=== PATIENT | male | born 1980 | race African-American/Black ===

== ENCOUNTER → 2017-03-11 | Outpatient (CLI) | payer MEDICARE ==
[~2017-03-11] MED LIST: IBUPROFEN PO; VOLTAREN75 MG PO
--- NOTE | ~2017-03-11 | MR113 ---
[facility] A Service of [facility] RADIOLOGY TEXT RESULTS PATIENT: LB STATON JR LOCATION: [facility] : 82 UNIT #: [id number] AGE: [address]: RICHELLE JONES PA-C SEX: M ORDER DR: [id number] [address] [address] [id number] O MR#: [id number] Acc #: [id number] NAME: LB STATON : 1980 SEX: M STUDY DATE/TIME: 03/11/2017 8:44 UNIT: [facility] ROOM: STUDY DESCRIPTION: MR Lumbar Wo Contrast Attending Physician: Richelle Jones Referring Physician: Richelle Jones Ordering Physician: Ilya Cyr M.D. Primary Care Physician: Ilya Cyr M.D. MRI CENTER REPORT This report is preliminary unless electronic signature is present. EXAM MRI of the lumbar spine without contrast. DATE OF EXAM 03/11/2017 COMPARISON Plain films lumbar spine dated 03/08/2017. HISTORY Low back pain ever since childhood. Sciatica and numbness with tingling in bilateral lower extremities. Difficulty lying flat. FINDINGS Multisequence, multiplanar imaging of the lumbar spine was obtained without contrast. Vertebral body heights and alignment are preserved. Intervertebral disc heights and signal are intact. Conus terminates at L1. Signal of conus and cauda equina are within normal limits. Pre and paravertebral soft tissues do not demonstrate any significant abnormality. Mild disc bulge is noted from L3-4 to L5-S1 with small left foraminal to extraforaminal broad-based protrusion at L4-5 and central protrusion L5-S1. Borderline size canal is at L4-5. No significant canal stenosis at any of the levels. Mild inferior right and mild left neural foraminal narrowing are noted at L4-5, relatively worse on the left. IMPRESSION 1. 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 Dictated by... [facility] A Service of [facility] RADIOLOGY TEXT RESULTS PATIENT: LB STATON JR LOCATION: [facility] : 82 UNIT #: [id number] AGE: [address]: RICHELLE JONES PA-C SEX: M ORDER DR: Christiano Shane M.D. THIS IS AN ELECTRONICALLY VERIFIED REPORT Christiano Shane M.D. at 03/11/2017 3:49 PM CPR/jt TD: 03/11/2017 15:41 JOB #: [id number] MRI CENTER REPORT Page 1 of 1
== END | disposition home or self-care (01) ==
LOC: SMRI 08:23
DX: R20.0 Anesthesia of skin (principal); R20.2 Paresthesia of skin; M54.30 Sciatica, unspecified side; M54.9 Dorsalgia, unspecified; M47.816 Spondylosis without myelopathy or radiculopathy, lumbar region; M47.817 Spondylosis without myelopathy or radiculopathy, lumbosacral region
CPT/HCPCS: 72148